=== PATIENT | male | born 1960 ===

== ENCOUNTER 2016-04-30 10:45 | Observation (INO) | payer OTHER ==
--- NOTE | 2016-04-30 11:42 | RAD ---
HISTORY: Dizziness, headache, left-sided weakness COMPARISONS: None TECHNIQUE: Multiple contiguous axial CT scans were obtained of the head without intravenous contrast. FINDINGS: HEMORRHAGE/INFARCT: There is no hemorrhage or acute infarct. MASSES/SHIFT: There is no mass or shift. EXTRA-AXIAL SPACES: There are no extra-axial fluid collections. SULCI AND VENTRICLES: The sulci and ventricles are normal in size and position for the patient's stated age. CEREBRUM: There is a small focus of hyperattenuation along the insula on the right measuring 0.7 cm in size. BRAINSTEM: There are no focal parenchymal abnormalities. CEREBELLUM: There are no focal parenchymal abnormalities. VESSELS: The vessels are grossly normal. PARANASAL SINUSES: The paranasal sinuses are clear. ORBITS: The orbits are unremarkable. BONES AND SOFT TISSUE: No bone or soft tissue abnormalities are noted. OTHER: None IMPRESSION: SMALL FOCUS OF HYPERATTENUATION ALONG THE RIGHT INSULA WHICH MAY REFLECT A SUBACUTE TO CHRONIC LACUNAR INFARCT. OTHERWISE, THERE IS NO ACUTE INTRACRANIAL PATHOLOGY
[2016-04-30 11:44] LABS: Hematocrit 45 % (42-52); Mean Corpuscular HGB Conc 34 g/dl (31-36); Mean Corpuscular Hemoglobin 31 pg (27-31); Mean Corpuscular Volume 92 fL (80-94); Mean Platelet Volume 10 um3 (7.4-10.4); Red Blood Count 4.86 10^6/ul (4.0-5.4); Red Cell Distribution Width 13 % (10.5-15); White Blood Count 7.2 10^3/ul (3.5-10.8)
[2016-04-30 11:58] LABS: Albumin 4.3 g/dL (3.2-5.2); Calcium 9.9 mg/dL (8.6-10.3); EGFR African American 128.1 (>60); EGFR Non-African American 99.6 (>60); Globulin 3.3 g/dL (2-4); Magnesium 2.2 mg/dL (1.9-2.7); Potassium 4.1 mmol/L (3.5-5.0); Total Bilirubin 0.4 mg/dL (0.2-1.0); Total Protein 7.6 g/dL (6.4-8.9)
[2016-04-30 12:38] LABS: TSH (Thyroid Stimulating Horm) 1.52 mcIU/mL (0.34-5.60)
--- NOTE | 2016-04-30 12:38 | RAD ---
INDICATION: Cough. COMPARISON: There are no prior studies available for comparison. TECHNIQUE: Dual-energy PA and lateral views of the chest were obtained. FINDINGS: The heart is within normal limits in size. Mediastinal and hilar contours appear within normal limits. The lungs are hyperinflated and clear. No pleural effusion is seen. There are multiple [id number] compression fractures of mid dorsal vertebral bodies which appear chronic. There is secondary degenerative disc disease. IMPRESSION: 1. NO EVIDENCE FOR ACUTE FINDING. 2. MULTIPLE CHRONIC DORSAL VERTEBRAL BODY COMPRESSION FRACTURES.
[2016-04-30] MEDS ORDERED: Acetaminophen TAB* 325 MG PO ONE (13:43)
[2016-04-30 13:48] LABS: Urine Bilirubin Negative (Negative); Urine Glucose Negative (Negative); Urine Nitrite Negative (Negative)
[2016-04-30] MEDS ORDERED: Albuterol HFA INHALER* 8 gm MDI INH PRN (14:10)
--- NOTE | 2016-04-30 14:32 | ADMNOTE ---
Subjective Date of Service: 04/30/16 Interval History: ADMISSION HISTORY AND PHYSICAL EXAM: Allergies Allergy/AdvReac Type Severity Reaction Status Date / Time No Known Allergies Allergy Verified 04/30/16 13:34 Home Medications Medication Instructions Recorded Confirmed Type Albuterol HFA INHALER* [Ventolin 2 puff INH QID PRN 04/30/16 04/30/16 History HFA Inhaler*] Beclomethasone 80 MCG MDI(NF) 1 puff INH BID 04/30/16 04/30/16 History [Qvar 80 MCG MDI(NF)] Hydrochlorothiazide TAB* 25 mg PO DAILY 04/30/16 04/30/16 History [Hydrodiuril TAB*] Lisinopril TAB* [Prinivil TAB*] 20 mg PO DAILY 04/30/16 04/30/16 History amLODIPine TAB* [Norvasc TAB*] 5 mg PO DAILY 04/30/16 04/30/16 History predniSONE TAB* [Deltasone TAB*] 10 mg PO DAILY 04/30/16 04/30/16 History HPI: Patient states he awoke this AM not feeling right with L leg numbness. He states he was hospitalized at [facility] 11/2015 for the same thing, and was given ASA and later physical therapy. He was treated at another hospital about a month ago for the same problem. It is not clear how much disability he had yesterday. Family History: Findings - Father of sepsis. Mothe alive, had CVA. I sister with brain aneurysm. 4 borthers A&W. 1 son A&W. Social History: Findings - I:n WDTC 2 weeks. SDM is his Lin Porter. Smoker. No alcohol abuse. No illicit drug use. Past Medical History: Findings - L shoulder surgery. COPD, HTN, PNA Review of Systems - Review of Systems Constitutional Symptoms: Negative: Weight Gain, Weight Loss, Weakness, Fatigue, Fever, Night Sweats, Unexplained Falls, Other Dermatology: Positive: Normal HEENT: Positive: Normal Eyes: Positive: Normal Thyroid: Positive: Normal Pulmonary: Positive: Cough - Cough times several weeks. Had flu vaccine. Cardiology: Positive: Normal Gastroenterology: Positive: Normal Genital - Urinary: Positive: Normal Endocrinology: Positive: Normal Hematologic/Lymphatic: Negative: Anemia, Easy Brusing, Hx Leukemia, Hx Lymphoma, Use of Anticoagulant, Use of Antiplatelet Drugs, Other Neurology: Positive: Numbness\Paresthesiae Psychiatry: Positive: Normal Allergic/Immunologic: Negative: Hx Anaphylaxis, Hx Angioedema, Hx Environmental, Hx Seasonal, Athsma, Hx HIV, Immunocompromise, Swollen Glands LymphNodes, Other Objective Active Medications: Albuterol (Ventolin Hfa Inhaler*) 2 puff INH QID PRN PRN Reason: WHEEZING Amlodipine Besylate (Norvasc Tab*) 5 mg PO DAILY COLIN Aspirin (Aspirin Low Dose Tab*) 162 mg PO ONCE ONE Stop: 05/01/16 14:11 Aspirin (Aspirin Low Dose Tab*) 81 mg PO DAILY COLIN Enoxaparin Sodium (Lovenox(*)) 40 mg SUBCUT Q24H COLIN Hydrochlorothiazide (Hydrodiuril Tab*) 25 mg PO DAILY COLIN Lisinopril (Prinivil Tab*) 20 mg PO DAILY COLIN Prednisone (Deltasone Tab*) 5 mg PO DAILY COLIN Vital Signs 04/30/16 04/30/16 13:30 14:00 Pulse Rate 77 82 Respiratory 12 Rate Blood Pressure 145/101 (mmHg) O2 Sat by Pulse 97 100 Oximetry Oxygen Devices in Use Now: None Appearance: Alert, supine on ED stretcher. In fair spirits. Looks comfortable. Eyes: No Scleral Icterus Ears/Nose/Mouth/Throat: Clear Oropharnyx, Mucous Membranes Moist Neck: NL Appearance and Movements; NL JVP, No Thyroid Enlargement, Masses Respiratory: Symmetrical Chest Expansion and Respiratory Effort, Clear to Auscultation, Clear to Percussion Cardiovascular: NL Sounds; No Murmurs; No JVD, RRR, No Edema, - Extremities: No Edema, No Clubbing, Cyanosis, - Skin: No Rash or Ulcers, No Nodules or Sclerosis, - Neurological: Alert and Oriented x 3, NL Sensation, - - L leg decreased sensation to light touch. Result Diagrams: 04/30/16 11:20 04/30/16 11:20 Additional Lab and Data: Lab Results 04/30/16 04/30/16 04/30/16 Range/Units 11:20 11:20 11:20 WBC 7.2 (3.5-10.8) 10^3/ul RBC 4.86 (4.0-5.4) 10^6/ul Hgb 15.0 (14.0-18.0) g/dl Hct 45 (42-52) % MCV 92 (80-94) fL MCH 31 (27-31) pg MCHC 34 (31-36) g/dl RDW 13 (10.5-15) % Plt Count 159 (150-450) 10^3/ul MPV 10 (7.4-10.4) um3 Neut % (Auto) 67.6 (38-83) % Lymph % (Auto) 23.3 L (25-47) % Collin % (Auto) 7.3 (1-9) % Eos % (Auto) 1.4 (0-6) % Baso % (Auto) 0.4 (0-2) % Absolute Neuts (auto) 4.9 (1.5-7.7) 10^3/ul Absolute Lymphs (auto) 1.7 (1.0-4.8) 10^3/ul Absolute Monos (auto) 0.5 (0-0.8) 10^3/ul Absolute Eos (auto) 0.1 (0-0.6) 10^3/ul Absolute Basos (auto) 0 (0-0.2) 10^3/ul Absolute Nucleated RBC 0.01 10^3/ul Nucleated RBC % 0.1 Sodium 136 (133-145) mmol/L Potassium 4.1 (3.5-5.0) mmol/L Chloride 101 (101-111) mmol/L Carbon Dioxide 31 (22-32) mmol/L Anion Gap 4 (2-11) mmol/L BUN 20 (6-24) mg/dL Creatinine 0.80 (0.67-1.17) mg/dL Est GFR ( Amer) 128.1 (>60) Est GFR (Non-Af Amer) 99.6 (>60) BUN/Creatinine Ratio 25.0 H (8-20) Glucose 84 (70-100) mg/dL Lactic Acid 1.2 (0.5-2.0) mmol/L Calcium 9.9 (8.6-10.3) mg/dL Magnesium 2.2 (1.9-2.7) mg/dL Total Bilirubin 0.40 (0.2-1.0) mg/dL AST 14 (13-39) U/L ALT 10 (7-52) U/L Alkaline Phosphatase 72 (34-104) U/L Troponin I 0.00 (<0.04) ng/mL Total Protein 7.6 (6.4-8.9) g/dL Albumin 4.3 (3.2-5.2) g/dL Globulin 3.3 (2-4) g/dL Albumin/Globulin Ratio 1.3 (1-3) TSH Pending Assess/Plan/Problems-Billing Assessment: - Patient Problems (1) CVA (cerebral vascular accident) Current Visit: Yes Status: Acute Code(s): I63.9 - CEREBRAL INFARCTION, UNSPECIFIED SNOMED Code(s): 862333433 Comment: ASA started, 162 mg in ED then 81 mg daily. Records requested from [facility]. PT/OT, tele. Dr. Dejesus to see today. (2) COPD (chronic obstructive pulmonary disease) Current Visit: Yes Status: Acute Code(s): J44.9 - CHRONIC OBSTRUCTIVE PULMONARY DISEASE, UNSPECIFIED SNOMED Code(s): 15171493 Comment: Taper prednisone as no wheezing 02/27. Substitute mometasone for beclomethasone inhaler. (3) HTN (hypertension) Current Visit: Yes Status: Acute Code(s): I10 - ESSENTIAL (PRIMARY) HYPERTENSION SNOMED Code(s): 20964160 Comment: Continue thiazide, lisinopril, amolodipine.
[2016-04-30] MEDS: Enoxaparin(*) 40 MG/0.4 ML SYR SUBCUT SCH (14:39)
[2016-04-30] MEDS: Aspirin Low Dose CHEW TAB* 81 MG PO ONE (14:40)
[2016-04-30] MEDS ORDERED: ALPRAZolam TAB* 0.25 MG PO ONE (16:16)
[2016-04-30] MEDS ORDERED: ALPRAZolam TAB* 0.25 MG ONE (16:22)
--- NOTE | 2016-04-30 17:30 | RAD ---
INDICATION: Left leg pain and weakness . Headaches. COMPARISON: CT brain April 30, 2016 TECHNIQUE: sagittal T1 FLAIR, axial diffusion, axial T1 FLAIR, axial T2, axial T2 FLAIR, and SWI images were acquired. FINDINGS: Craniocervical junction: The craniocervical junction appears normal. Ventricles/sulci: The ventricles and cisterns are normal in size and configuration for age. Brain parenchyma: There are no acute focal parenchymal abnormalities. There are scattered T2-weighted hyperintensities consistent with the sequela of prior microvascular ischemia There is no evidence of intracranial mass or mass effect. The diffusion weighted images show no evidence of acute ischemia. Intracranial hemorrhage: There is no intracranial hemorrhage. Extra-axial spaces: There are no extra-axial fluid collections or masses. Orbits: There are no MR abnormalities of the orbital structures. Paranasal sinuses/mastoid: The paranasal sinuses are clear. The mastoid air cells are well aerated.. Vascular: No abnormalities are seen. Other: None IMPRESSION: FINDINGS OF MILD CHRONIC MICROVASCULAR ISCHEMIC CHANGE. NO ACUTE FINDINGS
[2016-04-30] MEDS ORDERED: Mometasone 220 MCG MDI INH SCH (21:00)
[2016-05-01] MEDS ORDERED: Acetaminophen TAB* 325 MG PO PRN (08:09)
[2016-05-01] MEDS ORDERED: Hydrochlorothiazide TAB* 25 MG PO SCH (09:00)
[2016-05-01] MEDS ORDERED: amLODIPine TAB* 5 MG PO SCH (09:00)
[2016-05-01] MEDS ORDERED: Aspirin Low Dose CHEW TAB* 81 MG PO SCH (09:00)
[2016-05-01] MEDS ORDERED: Lisinopril TAB* 10 MG PO SCH (09:00)
[2016-05-01] MEDS ORDERED: predniSONE TAB* 5 MG PO SCH (09:00)
[2016-05-01 12:35] VITALS: BP 139/91
--- NOTE | 2016-05-01 13:30 | CONS ---
NEUROLOGY CONSULTATION: DATE OF CONSULT: 04/30/16 LOCATION: The patient is an inpatient. REQUESTING PHYSICIAN: Dr. Galen Bolivar in the emergency department. REASON FOR CONSULT: Abnormal CT scan. HISTORY OF PRESENT ILLNESS: Keily Porter is a 55-year-old man who comes from the [facility] and has a past history of hypertension as well as reported stroke/TIA in November of 2015, treated at [facility]. He reports that he woke up this morning and got out of bed and felt very dizzy. He sat back down on his bed and then was able to get up and go about his usual activities. He reports that during one of their morning exercises, his left leg began to feel "" and he almost fell because it gave out on him. He then went to see the nurse and his left hand also began to feel numb, and he reported some sort of shaking which he demonstrates bilaterally. He did not lose awareness with this episode. He then developed headache and some blurred vision and was sent to [facility] for further evaluation. The patient reports that he had a stroke and was in a coma for a week in November of 2015. His symptoms were the same as the symptoms today, namely weakness and numbness on the left side. He never really fully returned to baseline after that event and it sounds like his left-sided symptoms intermittently get worse and this is what happened today. He also describes that he has some neck pathology and was seeing a neurosurgeon with a planned operation, but that has been put on hold since he has been in this new facility for approximately 2 weeks. It is not clear as to whether his left-sided symptoms are related to the problems in his neck or related to this past stroke. He reports he was being given aspirin or Plavix after his stroke in the fall, but it does not look like he is receiving those medications at his treatment facility. He also reports previously being treated with gabapentin for unclear indication, but also is not receiving that in the treatment facility. Currently, he feels essentially back to his baseline in terms of his left-sided symptoms, though there is residual numbness in the left leg and arm. He denies any headache or blurred vision currently. PAST MEDICAL HISTORY: 1. Stroke/TIA in November 2015. Also according to review of records, he was recently evaluated in March of this year for the same symptoms. 2. Hypertension. 3. Asthma/COPD. 4. Hepatitis C antibody positive. HOME MEDICATIONS: 1. Lisinopril 20 mg daily. 2. Prednisone 10 mg daily. 3. Amlodipine 5 mg daily. 4. Qvar twice daily. 5. Albuterol 4 times daily as needed. 6. Hydrochlorothiazide 25 mg daily. ALLERGIES: No known drug allergies. FAMILY HISTORY: There is a family history of hypertension. SOCIAL HISTORY: He is currently an inmate at the [facility]. REVIEW OF SYSTEMS: The patient reports a cough which has been present for approximately a month and some discomfort in his chest related to that. Otherwise, as per HPI. PHYSICAL EXAM: Vital Signs: Temperature 98, blood pressure is 125/99. The first noted blood pressure in triage was 200/105, but subsequent blood pressures have been no higher than 148 systolic without any intervention. On general examination, the patient appears his stated age and is in no acute distress. Heart revealed a regular rate and rhythm with no murmurs, rubs, or gallops. I could not auscultate air moving well in his lungs, but it was unclear whether the patient was exhibiting full respiratory effort during my exam. Carotids were negative for bruits. There is no extremity edema. On neurologic examination, he is fully awake, alert, and oriented. His speech is fluent without dysarthria or aphasia. He is a somewhat vague informant. Pupils were equal, round, and reactive from 3 to 2 mm bilaterally. Versions are full without nystagmus. On visual field testing, he appeared unable to detect movement in his left lower quadrant. Facial sensation was diminished temperature and light touch in the left V1 through V3 distributions. With an attempt to test with a tuning fork on the forehead, he reported being able to hear but not feel the tuning fork. Facial musculature was full and symmetric. Hearing was intact to voice. The palate elevates symmetrically and the tongue is midline. On motor examination, there is normal bulk and tone in the upper and lower extremities. Strength is full in the right upper and lower extremities. There is some give-way weakness in the left shoulder, biceps, hip flexor, knee flexor, and ankle dorsiflexor. Sensation is diminished to temperature in the left arm and leg globally. There is no ataxia on finger-to- nose. Reflexes are 2+ in the upper extremities, 2+ in the right knee, 1+ left knee, 2+ right ankle, and 1+ left ankle with downgoing toes bilaterally. Romberg is negative. His gait is narrow-based, but he favors the left leg and walks with his toes extended without fully planting the left foot, which he reports is due to the numbness that he is experiencing in the foot. DIAGNOSTIC STUDIES/LAB DATA: CBC and CMP were reviewed and are essentially unremarkable. TSH is 1.52. Urinalysis is negative for infection. The patient underwent a brain CT without contrast and this showed a hypodensity in the right subinsular cortex which could be consistent with a subacute to chronic lacunar infarction. Chest x-ray demonstrated multiple [id number]-qh-[id number] compression fractures of the mid dorsal vertebral bodies, which appear chronic, but there were no acute findings in the lungs. IMPRESSION: Keily Porter is a 55-year-old man with a history of hypertension and reported past history of TIA/stroke resulting in left-sided symptoms, who presented with exacerbation of his chronic left-sided weakness and numbness in association with some dizziness this morning and then headache and blurred vision. In taking his history and examining him, it sounds like there is not much that is new in terms of focal neurologic deficit in this patient and many aspects of his exam have a functional flavor to them. We will get an MRI of the brain to further investigate whether there are any acute changes and follow up on the changes noted in the CAT scan. If there are any signs of acute stroke , he will undergo appropriate workup for that. If the MRI suggests chronic changes, then I do not think it is necessary to have him undergo another TIA or stroke workup since we are trying to track down records from [facility] as well. He requested a benzodiazepine for claustrophobia for the MRI and I confirmed with the guards that this would be acceptable to use in the setting. Thank you for this consultation. [id number]/[facility] #: [id number] FRANCES
[2016-05-01] MEDS: Aspirin Low Dose CHEW TAB* 81 MG PO ONE (15:36)
[2016-05-01] MEDS: Enoxaparin(*) 40 MG/0.4 ML SYR SUBCUT SCH (15:36)
--- NOTE | 2016-05-01 16:10 | PN ---
Progress Note - Progress Note Note: Time spent on discharge 45 minutes.
--- NOTE | 2016-05-02 09:42 | ED ---
Alhaji Palencia Salem, scribed for Joshua Bolivar MD on 04/30/16 at 1224 . Neurological HPI - HPI Summary HPI Summary: Patient is a 55 y/o male who presents to the ED via EMS with headache, dizziness , and left-sided weakness since this morning. Pt reports shaking, lightheadedness, and left-sided loss of sensation. He also reports falling this morning. He had a TIA in November 2015 and describes his current sx as similar to that episode. - History of Current Complaint Chief Complaint: EDGeneral Stated Complaint: POSSIBLE TIA Time Seen by Provider: 04/30/16 11:05 Hx Obtained From: Patient Onset/Duration: Gradual Onset, Started hours ago, Still Present Onset Severity: Moderate Current Severity: Moderate Neurological Deficit Location: LUE, LLE Headache Location: Frontal Pain Intensity: 8 Pain Scale Used: 0-10 Numeric Character: Lightheaded, Numbness/Tingling, Other: - Shaking. Aggravating: Nothing Alleviating: Nothing Associated Signs and Symptoms: Positive: Weakness, Lightheadness - Allergy/Home Medications Allergies/Adverse Reactions: Allergies Allergy/AdvReac Type Severity Reaction Status Date / Time No Known Allergies Allergy Verified 04/30/16 13:34 Home Medications: Home Medications Albuterol HFA INHALER* [Ventolin HFA Inhaler*] 2 puff INH QID PRN 04/30/16 [ History Confirmed 04/30/16] Beclomethasone 80 MCG MDI(NF) [Qvar 80 MCG MDI(NF)] 1 puff INH BID 04/30/16 [ History Confirmed 04/30/16] Hydrochlorothiazide TAB* [Hydrodiuril TAB*] 25 mg PO DAILY 04/30/16 [History Confirmed 04/30/16] Lisinopril TAB* [Prinivil TAB 10 MG*] 20 mg PO DAILY 04/30/16 [History Confirmed 04/30/16] amLODIPine TAB* [Norvasc TAB*] 5 mg PO DAILY 04/30/16 [History Confirmed ] PMH/Surg Hx/FS Hx/Imm Hx Respiratory History: Reports: Hx Chronic Obstructive Pulmonary Disease (COPD) Infectious Disease History: No Infectious Disease History: Denies: Traveled Outside the [place] in Last 30 Days - Family History Known Family History: Positive: Hypertension - Mother. 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 Alcohol Use: None Substance Use Type: Reports: None Smoking Status (MU): Light Every Day Tobacco Smoker Review of Systems Negative: Fever Neurological: Other - Lightheadedness and shaking. Positive: Weakness - Left-sided. , Numbness - Left-sided. All Other Systems Reviewed And Are Negative: Yes Physical Exam Triage Information Reviewed: Yes Vital Signs On Initial Exam: Initial Vitals Temp Pulse Resp BP Pulse Ox 99.1 F 80 16 200/105 98 04/30/16 10:45 04/30/16 10:45 04/30/16 10:45 04/30/16 10:45 04/30/16 10:45 Vital Signs Reviewed: Yes Appearance: Positive: Well-Appearing, No Pain Distress Skin: Positive: Warm, Skin Color Reflects Adequate Perfusion, Dry Head/Face: Positive: Normal Head/Face Inspection Eyes: Positive: Normal Neck: Positive: Supple, Nontender Respiratory/Lung Sounds: Positive: Clear to Auscultation, Breath Sounds Present Cardiovascular: Positive: RRR Abdomen Description: Positive: Nontender, Soft Bowel Sounds: Positive: Present Musculoskeletal: Positive: Normal Psychiatric: Positive: Normal, Affect/Mood Appropriate AVPU Assessment: Alert Diagnostics - Vital Signs Vital Signs Temp Pulse Resp BP Pulse Ox 04/30/16 11:00 16 148/110 04/30/16 10:55 86 17 99 04/30/16 10:53 123/93 04/30/16 10:48 98.3 F 87 20 129/93 100 04/30/16 10:45 99.1 F 80 16 200/105 98 - Laboratory Lab Results: Lab Results 04/30/16 04/30/16 04/30/16 Range/Units 11:20 11:20 11:20 WBC 7.2 (3.5-10.8) 10^3/ul RBC 4.86 (4.0-5.4) 10^6/ul Hgb 15.0 (14.0-18.0) g/dl Hct 45 (42-52) % MCV 92 (80-94) fL MCH 31 (27-31) pg MCHC 34 (31-36) g/dl RDW 13 (10.5-15) % Plt Count 159 (150-450) 10^3/ul MPV 10 (7.4-10.4) um3 Neut % (Auto) 67.6 (38-83) % Lymph % (Auto) 23.3 L (25-47) % Bosque % (Auto) 7.3 (1-9) % Eos % (Auto) 1.4 (0-6) % Baso % (Auto) 0.4 (0-2) % Absolute Neuts (auto) 4.9 (1.5-7.7) 10^3/ul Absolute Lymphs (auto) 1.7 (1.0-4.8) 10^3/ul Absolute Monos (auto) 0.5 (0-0.8) 10^3/ul Absolute Eos (auto) 0.1 (0-0.6) 10^3/ul Absolute Basos (auto) 0 (0-0.2) 10^3/ul Absolute Nucleated RBC 0.01 10^3/ul Nucleated RBC % 0.1 Sodium 136 (133-145) mmol/L Potassium 4.1 (3.5-5.0) mmol/L Chloride 101 (101-111) mmol/L Carbon Dioxide 31 (22-32) mmol/L Anion Gap 4 (2-11) mmol/L BUN 20 (6-24) mg/dL Creatinine 0.80 (0.67-1.17) mg/dL Est GFR ( Amer) 128.1 (>60) Est GFR (Non-Af Amer) 99.6 (>60) BUN/Creatinine Ratio 25.0 H (8-20) Glucose 84 (70-100) mg/dL Lactic Acid 1.2 (0.5-2.0) mmol/L Calcium 9.9 (8.6-10.3) mg/dL Magnesium 2.2 (1.9-2.7) mg/dL Total Bilirubin 0.40 (0.2-1.0) mg/dL AST 14 (13-39) U/L ALT 10 (7-52) U/L Alkaline Phosphatase 72 (34-104) U/L Troponin I 0.00 (<0.04) ng/mL Total Protein 7.6 (6.4-8.9) g/dL Albumin 4.3 (3.2-5.2) g/dL Globulin 3.3 (2-4) g/dL Albumin/Globulin Ratio 1.3 (1-3) TSH Pending Result Diagrams: 02/14/17 11:20 04/30/16 11:20 Lab Statement: Any lab studies that have been ordered have been reviewed, and results considered in the medical decision making process. - Radiology CXR Radiology Interpretation Completed By: Radiologist - IMPRESSION: 1. NO EVIDENCE FOR ACUTE FINDING. 2. MULTIPLE CHRONIC DORSAL VERTEBRAL BODY COMPRESSION FRACTURES. - CT BRAIN CT Interpretation Completed By: Radiologist - IMPRESSION: SMALL FOCUS OF HYPERATTENUATION ALONG THE RIGHT INSULA WHICH MAY REFLECT A SUBACUTE TO CHRONIC LACUNAR INFARCT. OTHERWISE, THERE IS NO ACUTE INTRACRANIAL PATHOLOGY - EKG 1046 Cardiac Rate: NL EKG Rhythm: Sinus Rhythm - 87 bpm. NIH Scale - NIH Scale Level of Consciousness: Alert/Keenly Responsive Ask Patient the Month and His/Her Age: Both Correct Ask Pt to Open/Close Eyes and Rehab Nursing Tech/Release Non-Paretic Hand: Both Correctly Best Gaze (Only Horizontal Eye Movement): Normal Visual Field Testing: Partial Hemianopia Facial Paresis-Pt to Smile & Close Eyes or Grimace Symmetry: Normal/Symmetrical Motor Function - Right Arm: No Drift-Holds 10 Seconds Motor Function - Left Arm: Drifts LT 10 seconds Motor Function - Right Leg: No Drift-Holds 10 Seconds Motor Function - Left Leg: Drifts LT 10 seconds Limb Ataxia-Must be out of Proportion to Weakness Present: Absent Sensory (Use Pinprick to Test Arms/Legs/Trunk/Face): Pinprick Less on Affected Best Language (Describe Picture, Name Items): No Aphasia Dysarthria (Read Several Words): Normal Extinction and Inattention: No Abnormality Total Score: 4 Course/Dx - Course Course Of Treatment: Mr. Porter presented to the ED with what sounded like an exacerbation of chronic left-sided weakness and numbness as well as soemild near -syncopal symptoms this morning. He woke up with some of the symptoms and possibly developed more after getting out of bed. M initial impression was that this was nonacute and possibly functional however, his CT returned with a possible subacute CVA on the right. - Diagnoses Provider Diagnoses: CVA (cerebral vascular accident) - Physician Notifications Discussed Care of Patient With: Dr. Dejesus (Neurologist) @ [id number]. Suhail Agustin ( CARDIOLOGY CLINICAL CONSULTANT) @ [id number]. He will admit pt. Instructed by Provider To: Admit As Inpatient Discharge - Discharge Plan Condition: Improved Disposition: ADMITTED TO [facility] documentation as recorded by the Alhaji moy Salem accurately reflects the service I personally performed and the decisions made by me, Joshua Bolivar MD.
--- NOTE | 2016-05-02 12:58 | DS ---
DISCHARGE SUMMARY: DATE OF ADMISSION: DATE OF DISCHARGE: 05/01/16 HISTORY: This 55-year-old man presented with left leg numbness and weakness. He had troubles dating back to at least August of 2015, he was in the emergency room a couple of times at [facility] in [place], diagnosed as TIA both times within the few days; on one occasion, he left the emergency room AMA. He stated he was hospitalized at [facility] in November for the same symptoms. He stated he was in the intensive care. He stated he went to physical therapy. I got the records of the emergency room visits. The patient was evaluated by Dr. Dejesus. The MRI was negative, although Dr. Dejesus thought there was a small area that could have been an old stroke. The official reading was microvascular changes, no acute change. The patient's symptoms were stable or improving. He was somewhat inconsistent in his history at times. As he had been without aspirin at the facility for 2 weeks, a firm diagnosis was difficult to establish whether he had a TIA or stroke or was having symptoms of an old stroke or not having physiologic symptoms at all, it is not clear. At most, I could say he had a TIA after being off aspirin for 2 weeks and reinstituting of aspirin seemed to be the most prudent course to give him benefit with a least side effects. His blood pressure was adequate control over here, although some of the readings were a little on the high side. This should be paid attention to as an outpatient. I did lower his prednisone dose from 10 mg to 5 mg. I think it should be stopped after a week, this may help his high blood pressure as well. FINAL DIAGNOSES: 1. Transient ischemic attack. 2. Chronic obstructive pulmonary disease. 3. Hypertension. DISCHARGE MEDICATIONS: 1. Aspirin 81 mg daily. 2. Prednisone 5 mg daily for 1 week, then stop. 3. Amlodipine 5 mg daily. 4. Beclomethasone 1 puff b.i.d. 5. Albuterol inhaler 2 puffs q.i.d. p.r.n. 6. Lisinopril 20 mg daily. 7. Hydrochlorothiazide one daily. [id number] #: [id number] [facility]
== END 2016-05-01 17:40 ==
LOC: ED 10:45 → INTOOBSV 13:03 → MEDTELE 13:03 → EEVIPCON 13:03
PROVIDERS: ADMIT Internal Medicine; ATTEND Internal Medicine
DX: G45.9 Transient cerebral ischemic attack, unspecified (principal); R20.0 Anesthesia of skin; J44.9 Chronic obstructive pulmonary disease, unspecified; I10 Essential (primary) hypertension; Z79.82 Long term (current) use of aspirin; Z79.899 Other long term (current) drug therapy; F17.210 Nicotine dependence, cigarettes, uncomplicated
CPT/HCPCS: 36415; 70450; 70551; 71020; 80053; 81003; 83605; 83735; 84443; 84484; 85025; 93005; 94640; 94760; 96372; 99285; 99406; A9270-GY; G0378; J1650; J7512